=== PATIENT | male | born 1970 | race Caucasian/White ===

== ENCOUNTER → 2022-06-24 | Day surgery (SDC) | payer BC ==
[~2022-06-24] MED LIST: ACETAMINOPHEN/CODEINE 300MG - 30MG TAB ONE; ATENOLOL25 MG PO; BUPIVACAINE 0.5%/EPI 30 ML SDV INJ ONE; CENTRUM ADULTS12 MCG PO; DEXAMETHASONE SOD PHOS 10 MG/1 ML VIAL ONE; GLYCOPYRROLATE INJ 0.2 MG/ML VIAL ONE; KETOROLAC TROMETHAMINE 30 MG/ML VIAL ONE; LIDOCAINE 1% W/EPINEPHRINE 20 ML VIAL ONE; NEOSTIGMINE 1 MG/ML 10ML VIAL ONE; ONDANSETRON HCL INJ 2MG/ML 2ML 2 MG/ML VIAL ONE; OXYMETAZOLINE HCL 0.05% NAS 1 SPRAY BTL ONE; POVIDONE IODINE 0.05% 0.05 % ML PO ONE; PROPOFOL IV EMULSION 10 MG/ML 20 ML VIAL ONE; ROCURONIUM BROMIDE 10 MG/ML 5ML VIAL IV ONE; SEVOFLURANE INHAL SOLN 250 ML PEN BTL ONE
[2022-06-24 09:30] VITALS: BP 125/86
== END | disposition home or self-care (01) ==
LOC: OR 05:50
PROVIDERS: ATTEND Otolaryngology Otolaryngology/Facial Plastic Surgery
DX: J35.8 Other chronic diseases of tonsils and adenoids (principal); I10 Essential (primary) hypertension; F17.210 Nicotine dependence, cigarettes, uncomplicated; Z79.899 Other long term (current) drug therapy
CPT/HCPCS: 31541; 31622; 43191; 88304; 93005; J1100; J1885; J2405; J2704; J2710